=== PATIENT | male | born 1980 | race Caucasian/White ===

== ENCOUNTER 2016-03-31 00:33 | Emergency (ER) | payer MEDICAID ==
[~2016-03-31 00:33] MED LIST: ATARAX25 MG PO; ATIVAN1 MG PO; AURALGAN EAR DR15 ML OT; BACTRIM DS 8001 TAB PO; BACTRIM DS TAB1 EACH PO; CIPRO HC OTIC S10 ML OT; CITALOPRAM20 MG PO; DICLOFENAC SOD75 MG PO; LORTAB ELIX0.5 MG/ML PO; MULTIPLE VITAMI1 CAP PO; OMNICEF 300MG300 MG PO; PREDNISONE10 M1 PO; PREDNISONE10 MG PO; TYLENOL 325MG325 MG PO
[2016-03-31] MEDS ORDERED: ANUSOL-HC25 MG RC (01:08)
[2016-03-31 01:20] VITALS: BP 121/75
== END 2016-03-31 01:20 | disposition home or self-care (01) ==
LOC: ED 00:33
DX: K64.9 Unspecified hemorrhoids (principal)

== ENCOUNTER 2017-12-10 14:12 | Emergency (ER) | payer MEDICAID ==
[~2017-12-10] VITALS: Ht 177.8 cm; Wt 109.1 kg
[~2017-12-10 14:12] MED LIST changes: +ANUSOL-HC25 MG RC
[2017-12-10 16:57] VITALS: BP 125/78
== END 2017-12-10 16:00 | disposition home or self-care (01) ==
LOC: ED 14:12
DX: M77.41 Metatarsalgia, right foot (principal)
CPT/HCPCS: J1885

== ENCOUNTER 2021-02-03 19:12 | Emergency (ER) | payer MEDICAID ==
[~2021-02-03] VITALS: Ht 177.8 cm; Wt 109.1 kg
[2021-02-03] MEDS ORDERED: MELOXICAM15 MG PO (19:39)
[2021-02-03] MEDS ORDERED: CELEXA 20MG20 MG/TA1 PO (19:39)
[2021-02-03] MEDS ORDERED: CLINDAMYCIN 300MG PO (20:19)
[2021-02-03 20:32] VITALS: BP 140/76
== END 2021-02-03 20:32 | disposition home or self-care (01) ==
LOC: ED 19:12
DX: K08.89 Other specified disorders of teeth and supporting structures (principal); F32.A Depression, unspecified; Z79.899 Other long term (current) drug therapy

== ENCOUNTER 2024-01-29 06:14 | Emergency (ER) | payer SELFPAY ==
[~2024-01-29 06:14] MED LIST changes: +CELEXA 20MG20 MG/TA1 PO; +CLINDAMYCIN 300MG PO; +MELOXICAM15 MG PO
[2024-01-29 06:21] VITALS: BP 160/105
[2024-01-29] MEDS ORDERED: PANTOPRAZOLE SO40 MG PO (06:34)
== END 2024-01-29 07:30 | disposition home or self-care (01) ==
LOC: ED 06:14
DX: U07.1 COVID-19 (principal); R05.9 Cough, unspecified; R42 Dizziness and giddiness; J31.0 Chronic rhinitis; J02.9 Acute pharyngitis, unspecified